=== PATIENT | male | born 1935 | race Caucasian/White ===

== ENCOUNTER → 2019-08-07 | Outpatient (CLI) | payer MEDICARE ==
--- NOTE | 2019-08-07 14:26 | US ---
EXAMINATION TYPE: US extremity nonvasc mass LT DATE OF EXAM: 08/07/2019 COMPARISON: NONE CLINICAL HISTORY: R22.32 LUMP/MASS. palpable seen for 1 week, patient has dementia and unsure of hist ory 3.2 x 1.3cm hypoechoic lesion that is lobular and very hard to the touch, not tender, not vascular, u nknown etiology IMPRESSION: Mass of uncertain etiology at the site of clinical concern. Correlate clinically.
== END | disposition home or self-care (01) ==
LOC: RADUSWWP 13:34
PROVIDERS: ATTEND Family Medicine
DX: R22.32 Localized swelling, mass and lump, left upper limb (principal)

== ENCOUNTER 2019-08-28 12:43 | Inpatient (IN) | payer MEDICARE ==
--- NOTE | 2019-08-28 13:27 | ED ---
Fall HPI - General Chief Complaint: Fall Stated Complaint: weakness, frequent falls Time Seen by Provider: 08/28/19 12:43 Source: patient, family, EMS, RN notes reviewed Mode of arrival: ambulatory - History of Present Illness Initial Comments: This is a 84-year-old male with a history dementia who is had frequent falls over last 24 hours he did fall and did sustain an abrasion to his right and anterior chest wall he states his legs are very weak nothing apparently focal also is come to light did his is been having help and get into bed and lift his legs up or last week or so. He does complain of hip pain bilaterally. No fevers chills nausea vomiting sweats no other modifying factors. MD Complaint: fall - Related Data Home Medications Medication Instructions Recorded Confirmed Clopidogrel Bisulfate [Plavix] 75 mg PO DAILY 04/07/16 04/07/16 Diltiazem HCl [Tiazac] 240 mg PO AC-BRKFST 04/07/16 04/07/16 Donepezil [Aricept] 10 mg PO AC-LUNCH 04/07/16 04/07/16 Methocarbamol [Robaxin-750] 750 mg PO Q6H PRN 04/07/16 04/07/16 Metoprolol Succinate [Toprol XL] 50 mg PO AC-BRKFST 04/07/16 04/07/16 Mirtazapine [Remeron] 22.5 mg PO HS 04/07/16 04/07/16 Pantoprazole Sodium [Protonix] 40 mg PO DAILY 04/07/16 04/07/16 Phenytoin Sodium Extended 300 mg PO AC-BRKFST 04/07/16 04/07/16 [Dilantin] Primidone [Mysoline] 25 mg PO BID 04/07/16 04/07/16 Tamsulosin HCl [Flomax] 0.4 mg PO HS 04/07/16 04/07/16 Previous Rx's Medication Instructions Recorded Acetaminophen-Codeine 300-30mg 1 tab PO Q8H PRN #30 tablet 04/07/16 [Tylenol #3] Allergies Allergy/AdvReac Type Severity Reaction Status Date / Time Penicillins Allergy Unknown Verified 04/07/16 12:33 Review of Systems ROS Statement: Those systems with pertinent positive or pertinent negative responses have been documented in the HPI. ROS Other: All systems not noted in ROS Statement are negative. Past Medical History Past Medical History: Hyperlipidemia, Hypertension Additional Past Medical History / Comment(s): arthritis History of Any Multi-Drug Resistant Organisms: None Reported Past Surgical History: Appendectomy Additional Past Surgical History / Comment(s): vein stripping Past Psychological History: No Psychological Hx Reported Smoking Status: Former smoker Past Alcohol Use History: None Reported Past Drug Use History: None Reported General Exam - General Exam Comments Initial Comments: This a well-developed asthenic appearing male who is awake and alert but slow to respond Limitations: no limitations General appearance: alert, in no apparent distress Head exam: Present: atraumatic, normocephalic, normal inspection Eye exam: Present: normal appearance, PERRL, EOMI. Absent: scleral icterus, conjunctival injection, periorbital swelling ENT exam: Present: normal exam, mucous membranes moist Neck exam: Present: normal inspection. Absent: tenderness, meningismus, lymphadenopathy Respiratory exam: Present: normal lung sounds bilaterally, chest wall tenderness (Abrasion to the chest wall some tenderness no step-off or crepitation). Absent: respiratory distress, wheezes, rales, rhonchi, stridor Cardiovascular Exam: Present: regular rate, normal rhythm, normal heart sounds. Absent: systolic murmur, diastolic murmur, rubs, gallop, clicks GI/Abdominal exam: Present: soft, normal bowel sounds. Absent: distended, tenderness, guarding, rebound, rigid Extremities exam: Present: normal inspection, full ROM, normal capillary refill. Absent: tenderness, pedal edema, joint swelling, calf tenderness Back exam: Present: normal inspection Neurological exam: Present: alert, oriented X3, CN II-XII intact Psychiatric exam: Present: normal mood, flat affect Skin exam: Present: warm, dry, intact, normal color. Absent: rash Course Vital Signs 08/28/19 08/28/19 12:52 14:38 Temperature 97.6 F Pulse Rate 63 76 Respiratory 18 18 Rate Blood Pressure 130/78 138/79 O2 Sat by Pulse 98 97 Oximetry Medical Decision Making - Medical Decision Making I did discuss [employer] the patient family as well as with Dr. Fernandes who is covering Dr. Rae. Patient will be admitted for IV fluids evaluation of frequent falls - Lab Data Result diagrams: 08/28/19 13:05 08/28/19 13:05 Lab Results 08/28/19 08/28/19 08/28/19 Range/Units 13:05 13:05 13:05 WBC 8.3 (3.8-10.6) k/uL RBC 4.58 (4.30-5.90) m/uL Hgb 14.8 (13.0-17.5) gm/dL Hct 44.6 (39.0-53.0) % MCV 97.3 (80.0-100.0) fL MCH 32.2 (25.0-35.0) pg MCHC 33.2 (31.0-37.0) g/dL RDW 12.8 (11.5-15.5) % Plt Count 140 L (150-450) k/uL Neutrophils % 84 % Lymphocytes % 8 % Monocytes % 7 % Eosinophils % 0 % Basophils % 0 % Neutrophils # 7.0 (1.3-7.7) k/uL Lymphocytes # 0.7 L (1.0-4.8) k/uL Monocytes # 0.6 (0-1.0) k/uL Eosinophils # 0.0 (0-0.7) k/uL Basophils # 0.0 (0-0.2) k/uL Sodium 142 (137-145) mmol/L Potassium 4.3 (3.5-5.1) mmol/L Chloride 108 H (98-107) mmol/L Carbon Dioxide 25 (22-30) mmol/L Anion Gap 9 mmol/L BUN 33 H (9-20) mg/dL Creatinine 1.37 H (0.66-1.25) mg/dL Est GFR (CKD-EPI)AfAm 55 (>60 ml/min/1.73 sqM) Est GFR (CKD-EPI)NonAf 48 (>60 ml/min/1.73 sqM) Glucose 100 H (74-99) mg/dL Calcium 9.9 (8.4-10.2) mg/dL Magnesium 2.3 (1.6-2.3) mg/dL Total Bilirubin 1.2 (0.2-1.3) mg/dL AST 22 (17-59) U/L ALT 10 (4-49) U/L Alkaline Phosphatase 67 (38-126) U/L Ammonia <9 (<30) umol/L Creatine Kinase 102 (55-170) U/L Troponin I (0.000-0.034) ng/mL Total Protein 6.8 (6.3-8.2) g/dL Albumin 4.3 (3.5-5.0) g/dL Lipase 185 (23-300) U/L Urine Color Urine Appearance (Clear) Urine pH (5.0-8.0) Ur Specific Bernard (1.001-1.035) Urine Protein (Negative) Urine Glucose (UA) (Negative) Urine Ketones (Negative) Urine Blood (Negative) Urine Nitrite (Negative) Urine Bilirubin (Negative) Urine Urobilinogen (<2.0) mg/dL Ur Leukocyte Esterase (Negative) Urine RBC (0-5) /hpf Urine WBC (0-5) /hpf Urine Bacteria (None) /hpf Urine Mucus (None) /hpf 08/28/19 08/28/19 Range/Units 13:05 15:41 WBC (3.8-10.6) k/uL RBC (4.30-5.90) m/uL Hgb (13.0-17.5) gm/dL Hct (39.0-53.0) % MCV (80.0-100.0) fL MCH (25.0-35.0) pg MCHC (31.0-37.0) g/dL RDW (11.5-15.5) % Plt Count (150-450) k/uL Neutrophils % % Lymphocytes % % Monocytes % % Eosinophils % % Basophils % % Neutrophils # (1.3-7.7) k/uL Lymphocytes # (1.0-4.8) k/uL Monocytes # (0-1.0) k/uL Eosinophils # (0-0.7) k/uL Basophils # (0-0.2) k/uL Sodium (137-145) mmol/L Potassium (3.5-5.1) mmol/L Chloride (98-107) mmol/L Carbon Dioxide (22-30) mmol/L Anion Gap mmol/L BUN (9-20) mg/dL Creatinine (0.66-1.25) mg/dL Est GFR (CKD-EPI)AfAm (>60 ml/min/1.73 sqM) Est GFR (CKD-EPI)NonAf (>60 ml/min/1.73 sqM) Glucose (74-99) mg/dL Calcium (8.4-10.2) mg/dL Magnesium (1.6-2.3) mg/dL Total Bilirubin (0.2-1.3) mg/dL AST (17-59) U/L ALT (4-49) U/L Alkaline Phosphatase (38-126) U/L Ammonia (<30) umol/L Creatine Kinase (55-170) U/L Troponin I 0.022 (0.000-0.034) ng/mL Total Protein (6.3-8.2) g/dL Albumin (3.5-5.0) g/dL Lipase (23-300) U/L Urine Color Yellow Urine Appearance Cloudy (Clear) Urine pH 5.0 (5.0-8.0) Ur Specific Bernard 1.023 (1.001-1.035) Urine Protein Trace H (Negative) Urine Glucose (UA) Negative (Negative) Urine Ketones Negative (Negative) Urine Blood Negative (Negative) Urine Nitrite Negative (Negative) Urine Bilirubin Negative (Negative) Urine Urobilinogen 2.0 (<2.0) mg/dL Ur Leukocyte Esterase Negative (Negative) Urine RBC 1 (0-5) /hpf Urine WBC 2 (0-5) /hpf Urine Bacteria Rare H (None) /hpf Urine Mucus Rare H (None) /hpf - EKG Data -: EKG Interpreted by Me EKG Comments: Sinus rhythm a 66. Interval 160 QRS duration 94 QT since QTC 440/461. Crit here for LVH nonspecific septal configuration - Radiology Data Radiology results: report reviewed (I did review the imaging and report no acute findings.), image reviewed Disposition Clinical Impression: Fall, Acute kidney injury, Dehydration, Failure to thrive syndrome, adult Disposition: ADMITTED IP TO THIS HOSP Condition: Fair Referrals: Rachel Fernández MD [Primary Care Provider] - 1-2 days
[2019-08-28 13:35] LABS: Basophils % (A) 0 %; Eosinophils % (A) 0 %; HCT 44.6 % (39.0-53.0); HGB 14.8 gm/dL (13.0-17.5); Lymphocytes # (A) 0.7 k/uL (1.0-4.8); Lymphocytes % (A) 8 %; MCH 32.2 pg (25.0-35.0); MCHC 33.2 g/dL (31.0-37.0); MCV 97.3 fL (80.0-100.0); Monocytes # (A) 0.6 k/uL (0-1.0); Monocytes % (A) 7 %; Neutrophils % (A) 84 %; Platelet Count 140 k/uL (150-450); RBC 4.58 m/uL (4.30-5.90); RDW 12.8 % (11.5-15.5); WBC 8.3 k/uL (3.8-10.6)
[2019-08-28 13:44] LABS: Albumin 4.3 g/dL (3.5-5.0); Calcium 9.9 mg/dL (8.4-10.2); Magnesium 2.3 mg/dL (1.6-2.3); Potassium 4.3 mmol/L (3.5-5.1); Total Bilirubin 1.2 mg/dL (0.2-1.3); Total Protein 6.8 g/dL (6.3-8.2)
--- NOTE | 2019-08-28 14:17 | CT ---
EXAMINATION TYPE: CT brain wo con DATE OF EXAM: 08/28/2019 COMPARISON: 04/05/2011 HISTORY: 84-year-old male persisting Neuro deficits. TECHNIQUE: Examination was done in axial plane without intravenous contrast. Coronal and sagittal r econstructions performed. CT DLP: 1099.4 mGycm Automated exposure control for dose reduction was used. FINDINGS: There is no evidence of acute intracranial hemorrhage, acute ischemic changes, mass, mass-effect, or extra-axial fluid collection. There is no effacement of cerebral sulci or basal subarachnoid cister ns. Moderate central cerebral atrophy with mild hydrocephalus, Hollis ratio calculated at 0.36. This appea rs to show some progression from 2010. Mild generalized cerebral cortical atrophy. Paranasal sinuses and mastoid air cells are well pneumatized. Orbits and globes are intact IMPRESSION: 1. Mild hydrocephalus likely secondary to moderate central cerebral atrophy. This has progressed from 2010. Correlate to exclude a component of NPH. 2. Otherwise, no acute intracranial abnormality seen.
--- NOTE | 2019-08-28 14:27 | XR ---
EXAMINATION TYPE: XR pelvis AP view DATE OF EXAM: 08/28/2019 CLINICAL HISTORY: Generalized weakness and fall. Pelvic pain. Bilateral hip pain. TECHNIQUE: A single AP view of the pelvis is obtained. COMPARISON: None. FINDINGS: Osseous demineralization is seen throughout as well as extensive atherosclerosis. There is no acute fracture/dislocation evident in the pelvis. The hip and sacroiliac joints appear symmetric. Degenerative changes are seen of the lumbosacral junction and hips, overall mild to moderate. The ov erlying soft tissue appears unremarkable. IMPRESSION: There is no acute fracture or dislocation in the pelvis.
--- NOTE | 2019-08-28 14:29 | XR ---
EXAMINATION TYPE: XR chest 2V DATE OF EXAM: 08/28/2019 COMPARISON: NONE HISTORY: Chest wall trauma and pain after fall TECHNIQUE: Frontal and lateral views of the chest are obtained. FINDINGS: There is no focal air space opacity, pleural effusion, or pneumothorax seen. The cardiac silhouette size is upper limits of normal. Age-indeterminate fracture of the posterior lateral rib 8 on the left.. Generalized osseous demineralization and mild degenerative change of the spine. IMPRESSION: 1. No acute cardiopulmonary process. 2. Age-indeterminate fracture of the posterior lateral margin of rib 8 on the left. Correlate with po int tenderness.
[2019-08-28 16:21] LABS: Appearance,Urine Cloudy (Clear); Bacteria,Urine Rare /hpf; Bilirubin,Urine Negative (Negative); Blood,Urine Negative (Negative); Color,Urine Yellow; Glucose,Urine (UA) Negative (Negative); Ketones,Urine Negative (Negative); Leukocyte Esterase,Urine Negative (Negative); Mucus,Urine Rare /hpf; Nitrite,Urine Negative (Negative); Protein,Urine Trace (Negative); RBC,Urine 1 /hpf (0-5); Specific Gravity,Urine 1.023 (1.001-1.035); WBC,Urine 2 /hpf (0-5)
[2019-08-28] MEDS ORDERED: NALOXONE 0.4 MG/ML 1 ML VIAL IV PRN (17:07)
[2019-08-28] MEDS ORDERED: METHOCARBAMOL 750 MG TAB PO PRN (17:09)
[2019-08-28] MEDS ORDERED: Acetaminophen-Codeine 300-30mg TAB PO PRN (17:09)
[2019-08-28] MEDS ORDERED: hydrOXYzine HCL 10 MG TAB PO PRN (17:57)
[2019-08-28] MEDS: SODIUM CHLORIDE 0.9% 1,000 ML IV SCH (18:00)
[2019-08-28] MEDS: HEPARIN SODIUM,PORCINE 5,000 UNIT/ML 1 ML VIAL SQ SCH (20:49)
[2019-08-28] MEDS ORDERED: PRIMIDONE 25 MG TAB PO SCH (21:00)
[2019-08-28] MEDS ORDERED: PRIMIDONE 50 MG TAB PO SCH (21:00)
[2019-08-28] MEDS ORDERED: TAMSULOSIN 0.4 MG CAP.ER.24H PO SCH (21:00)
[2019-08-28] MEDS ORDERED: MIRTAZAPINE 15 MG TAB PO SCH (21:00)
--- NOTE | 2019-08-29 00:04 | HP ---
HISTORY AND PHYSICAL Saleem Melendez is an 84-year-old male who presented to the ER with frequent falls. He had been having decreased oral intake as well as decreased fluid intake and had been having some diarrhea for about 3 days. He has a known history of dementia. He subsequently came into the hospital for further evaluation. PAST MEDICAL HISTORY: Positive for hypertension, hyperlipidemia, arthritis, appendectomy, previous vein stripping and dementia. SOCIAL HISTORY: The patient is a former smoker. 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 FAMILY HISTORY: Unavailable to me at this time. MEDICATIONS: Prior to admission were hydroxyzine, Toprol-XL, Aricept, Plavix, and Haloperidol. PHYSICAL EXAMINATION: Blood pressure is 154/83, respiratory rate of 16, pulse rate is 70, temperature 98, O2 saturation on room air is 98%. HEENT reveals pupils that were equal. No jugular venous distention. CHEST: Clear. Cardiovascular system is S1, S2. Abdomen is scaphoid with no edema. LABORATORY DATA: White count is 8.3, hemoglobin of 14.8, platelet count of 140,000. Sodium 142, potassium 4.3, chloride 108, BUN 33, creatinine of 1.37, glucose of 100, albumin of 4.3. CHEST X-RAY: Shows no acute cardiopulmonary process. There is an age-indeterminate fracture of the posterior lateral margin of the rib 8 on the left. Pelvis x-ray showed no acute fracture or dislocation in the pelvis. Brain CT showed mild hydrocephalus which has progressed from 2010. IMPRESSION: At this time: 1. Frequent falls. 2. Dementia. 3. Dehydration as the cause of his frequent falls. 4. Moderate malnutrition. At this point in time, would keep him on IV fluids. Continue on his home medications, have social work further evaluate the patient and PT and OT. Keep him on GI and DVT prophylaxis. Depending on how he does, we should make further changes to his care. His daughter was counseled regarding his condition and this approach. He is not to be considered for CPR or intubation. MMODL / IJN: [id number] /
[2019-08-29] MEDS: SODIUM CHLORIDE 0.9% 1,000 ML IV SCH ×2 (04:45→17:28)
[2019-08-29] MEDS ORDERED: DILTIAZEM CD 240 MG CAP.ER.24H PO SCH (07:30)
[2019-08-29] MEDS ORDERED: PHENYTOIN SODIUM EXTENDED 100 MG CAP PO SCH (07:30)
[2019-08-29] MEDS: PANTOPRAZOLE 40 MG TABLET PO SCH (07:56)
[2019-08-29] MEDS: METOPROLOL SUCCINATE (ER) 50 MG TAB.ER.24H PO SCH (07:56)
[2019-08-29] MEDS: HEPARIN SODIUM,PORCINE 5,000 UNIT/ML 1 ML VIAL SQ SCH ×2 (07:56→22:28)
[2019-08-29] MEDS: CLOPIDOGREL 75 MG TAB PO SCH (07:56)
[2019-08-29] MEDS: DONEPEZIL 10 MG TAB PO SCH (11:11)
--- NOTE | 2019-08-29 18:16 | PN ---
PROGRESS NOTE Covering for Dr. Rae. DATE OF SERVICE: 08/29/2019 The patient is an 84-year-old male who is seen lying in bed, is awake, alert, oriented x2, not sure of the year. The patient is denying any complaints, just feels kind of bunk. Is in no acute distress. Hemodynamically stable and afebrile. PHYSICAL EXAM: VITAL SIGNS: Temperature 97.5, heart rate 64, respiratory rate is 20, blood pressure is 127/72, O2 saturation is 98% on room air. HEENT: Head is normocephalic, atraumatic. Neck is supple. Trachea is midline. LUNGS are diminished but clear. No rales or wheezes. HEART is S1, S2 heard. Not tachycardic. ABDOMEN: Soft. Bowel sounds are positive. EXTREMITIES: With no edema. NEUROLOGIC: The patient is awake and alert, oriented x2. LABS: No new labs to review. IMAGING: No new imaging to review. IMPRESSION: At this time.: 1. Frequent falls. 2. Dementia. 3. Dehydration which may be the cause of his frequent falls. 4. Moderate malnutrition. PLAN: Continue current medications, which have been reviewed with IV fluids. Continue GI and DVT prophylaxis. We will consult social work and have the patient evaluated by PT and OT. Increase activity as tolerated. Continue to follow patient closely, making further changes as necessary. MMODL / IJN: [id number] /
[2019-08-30] MEDS: SODIUM CHLORIDE 0.9% 1,000 ML IV SCH ×2 (08:41→22:21)
[2019-08-30] MEDS: CLOPIDOGREL 75 MG TAB PO SCH (08:41)
[2019-08-30] MEDS: METOPROLOL SUCCINATE (ER) 50 MG TAB.ER.24H PO SCH (08:41)
[2019-08-30] MEDS: HEPARIN SODIUM,PORCINE 5,000 UNIT/ML 1 ML VIAL SQ SCH ×2 (08:41→22:20)
[2019-08-30] MEDS: PANTOPRAZOLE 40 MG TABLET PO SCH (08:41)
[2019-08-30] MEDS: DONEPEZIL 10 MG TAB PO SCH (11:48)
[2019-08-30 13:31] LABS: Basophils % (A) 0 %; Eosinophils % (A) 0 %; HCT 49.6 % (39.0-53.0); HGB 15.7 gm/dL (13.0-17.5); Lymphocytes # (A) 0.7 k/uL (1.0-4.8); Lymphocytes % (A) 9 %; MCH 31.4 pg (25.0-35.0); MCHC 31.7 g/dL (31.0-37.0); MCV 99.1 fL (80.0-100.0); Mean Platelet Volume 8.7; Monocytes # (A) 0.5 k/uL (0-1.0); Monocytes % (A) 6 %; Neutrophils # (A) 6.9 k/uL (1.3-7.7); Neutrophils % (A) 83 %; Platelet Count 134 k/uL (150-450); RDW 12.6 % (11.5-15.5); WBC 8.3 k/uL (3.8-10.6)
[2019-08-30 13:39] LABS: Albumin 3.9 g/dL (3.5-5.0); Calcium 9.7 mg/dL (8.4-10.2); Total Bilirubin 1.4 mg/dL (0.2-1.3); Total Protein 6.9 g/dL (6.3-8.2)
[2019-08-30 13:40] LABS: Potassium 4.4 mmol/L (3.5-5.1)
--- NOTE | 2019-08-30 15:00 | PN ---
PROGRESS NOTE He was she seen on 08/30/2019. He has been hemodynamically stable. He does not seem short of breath. He is starting to participate in physical therapy. PHYSICAL EXAMINATION: Respiratory rate is 18, pulse rate of 55, temperature 97.4, blood pressure 155/81, O2 saturation on room air is 96%. HEENT: Unremarkable. Chest is clear. Cardiovascular system reveals an S1, S2. Abdomen is soft. There is no pedal edema. Labs and meds were reviewed. IMPRESSION: 1. Dehydration, cause of his frequent falls. 2. Moderate malnutrition. Continue current medications, GI and DVT prophylaxis. He will require placement. Increase his activity level. Depending on how he does we should make further changes to his care. MMODL / IJN: [id number] /
[2019-08-31] MEDS: METOPROLOL SUCCINATE (ER) 50 MG TAB.ER.24H PO SCH (08:22)
[2019-08-31] MEDS: HEPARIN SODIUM,PORCINE 5,000 UNIT/ML 1 ML VIAL SQ SCH ×2 (08:22→21:09)
[2019-08-31] MEDS: PANTOPRAZOLE 40 MG TABLET PO SCH (08:23)
[2019-08-31] MEDS: SODIUM CHLORIDE 0.9% 1,000 ML IV SCH ×2 (08:23→21:09)
[2019-08-31] MEDS: CLOPIDOGREL 75 MG TAB PO SCH (08:23)
[2019-08-31] MEDS: DONEPEZIL 10 MG TAB PO SCH (12:37)
--- NOTE | 2019-08-31 14:46 | PN ---
PROGRESS NOTE DATE OF SERVICE: 08/31/2019 He was seen on August 31, 2019. He has been hemodynamically stable. His appetite is starting to improve. On physical examination, his vitals are stable. He is afebrile. His chest is clear. Cardiovascular system reveals an S1, S2. Abdomen is soft. There is no edema. The labs and medications were reviewed. IMPRESSION: At this time is: 1. Frequent falls. 2. Medical debility. 3. Moderate malnutrition. 4. Dehydration. Continue IV fluids. Will most likely require placement. Continue current medications which are reviewed. MMODL / IJN: [id number] /
[2019-09-01] MEDS: PANTOPRAZOLE 40 MG TABLET PO SCH (09:00)
[2019-09-01] MEDS: HEPARIN SODIUM,PORCINE 5,000 UNIT/ML 1 ML VIAL SQ SCH (09:00)
[2019-09-01] MEDS: CLOPIDOGREL 75 MG TAB PO SCH (09:00)
[2019-09-01] MEDS: SODIUM CHLORIDE 0.9% 1,000 ML IV SCH (09:00)
[2019-09-01] MEDS: METOPROLOL SUCCINATE (ER) 50 MG TAB.ER.24H PO SCH (09:01)
[2019-09-01 10:47] LABS: Basophils % (A) 0 %; Eosinophils % (A) 0 %; HCT 43.8 % (39.0-53.0); HGB 14.7 gm/dL (13.0-17.5); Lymphocytes # (A) 0.7 k/uL (1.0-4.8); Lymphocytes % (A) 13 %; MCH 32.2 pg (25.0-35.0); MCHC 33.5 g/dL (31.0-37.0); MCV 96.2 fL (80.0-100.0); Mean Platelet Volume 8.9; Monocytes # (A) 0.5 k/uL (0-1.0); Monocytes % (A) 8 %; Neutrophils % (A) 75 %; Platelet Count 132 k/uL (150-450); RBC 4.56 m/uL (4.30-5.90); RDW 12.7 % (11.5-15.5); WBC 5.3 k/uL (3.8-10.6)
[2019-09-01 10:55] LABS: Albumin 3.8 g/dL (3.5-5.0); Calcium 9.7 mg/dL (8.4-10.2); Potassium 3.8 mmol/L (3.5-5.1); Total Bilirubin 1.3 mg/dL (0.2-1.3); Total Protein 6.7 g/dL (6.3-8.2)
[2019-09-01 12:59] VITALS: BP 120/76; PULSE 52; RESP 17; TEMP 98.2
[2019-09-01] MEDS: DONEPEZIL 10 MG TAB PO SCH (12:59)
--- NOTE | 2019-09-01 15:01 | P.DS ---
Providers Date of admission: 08/29/19 11:25 Expected date of discharge: 09/01/19 Attending physician: Glory Rae Primary care physician: Rachel Fernández Hospital Course: Discharge diagnosis 1. Frequent falls. Pelvis x-ray completed showing no acute fracture or dislocation in the pelvis 2. History of dementia maintained on Aricept 3. Dehydration. Resolved 4. Moderate malnutrition 5. History of essential hypertension Hospital course This is an 84-year-old male patient of Dr. Fernández who originally presented to the ER with frequent falls and declining status. Per patient's patient has known past medical history of dementia and has been declining over the past few months refusing to take any oral meds. Patient did have decreased fluid at nutritional intake. Additional medical history includes hypertension, hyperlipidemia, osteoarthritis, appendectomy and ex-smoker. Creatinine on admission 1.37 and bun 33. UA was negative. Patient has been afebrile. Dr. HEATHER Fernandes covering until 09/01/2019 On 09/01/2019 patient is currently resting comfortably in bed patient remains confused which is baseline. Patient has received placement at [facility]. Per nursing staff patient had normal BM this a.m. creatinine has returned to normal. Family at bedside all questions answered. Patient denies any chest pain or shortness of breath. Patient denies nausea vomiting or diarrhea. Patient denies any urinary burning or frequency I performed an examination of the patient and discussed their management with the Nurse Practitioner. I have reviewed the Nurse Practitioner's notes and agree with the documented findings and plan of care Patient Condition at Discharge: Stable Plan - Discharge Summary Discharge Rx Participant: No New Discharge Prescriptions: Continue Metoprolol Succinate [Toprol XL] 50 mg PO DAILY Donepezil [Aricept] 10 mg PO DAILY Clopidogrel Bisulfate [Plavix] 75 mg PO DAILY Discontinued hydrOXYzine HCL [Atarax] 10 mg PO Q8H PRN PRN Reason: Anxiety Haloperidol Decanoate 100mg/Ml 75 mg IM Q30D Discharge Medication List Clopidogrel Bisulfate [Plavix] 75 mg PO DAILY 04/07/16 [History] Donepezil [Aricept] 10 mg PO DAILY 04/07/16 [History] Metoprolol Succinate [Toprol XL] 50 mg PO DAILY 04/07/16 [History] Follow up Appointment(s)/Referral(s): Rachel Fernández MD [Primary Care Provider] - 1-2 days Activity/Diet/Wound Care/Special Instructions: Activity as tolerated Diet heart healthy Discharge Disposition: TRANSFER TO SNF/ECF
== END 2019-09-01 17:54 | DRG 641 ==
LOC: EC 12:43 → 6NMEDSUR 17:06 → OBSVTOIN 08-29 11:25
PROVIDERS: ADMIT Internal Medicine; ATTEND Internal Medicine
DX: E86.0 Dehydration (principal); E44.0 Moderate protein-calorie malnutrition; N17.9 Acute kidney failure, unspecified; E78.5 Hyperlipidemia, unspecified; F03.90 Unspecified dementia, unspecified severity, without behavioral disturbance, psychotic disturbance, mood disturbance, and anxiety; M19.90 Unspecified osteoarthritis, unspecified site; R62.7 Adult failure to thrive; R53.81 Other malaise; I10 Essential (primary) hypertension; R29.6 Repeated falls; Z79.02 Long term (current) use of antithrombotics/antiplatelets; Z79.899 Other long term (current) drug therapy; Z88.0 Allergy status to penicillin; Z90.49 Acquired absence of other specified parts of digestive tract; Z87.891 Personal history of nicotine dependence
CPT/HCPCS: 36415; 70450; 71046; 72170; 80053; 80185; 81001; 82140; 82550; 83690; 83735; 84484; 85025; 93005; 99285